=== PATIENT | female | born 1935 | race Caucasian/White ===

== ENCOUNTER → 2017-11-10 | Outpatient (CLI) | payer MEDICARE ==
[~2017-11-10] MED LIST: LEVO100T63 PO; NEXI20CA PO; SIMV20TA PO
[2017-11-10 09:02] LABS: BILIRUBIN, URINE NEG (NEG); BLOOD, URINE NEG (NEG); GLUCOSE,URINE NEG (NEG); KETONE, URINE NEG (NEG); NITRITE,URINE NEG (NEG); PH, URINE 6.5 (5.0-8.5); URINE LEUKOCYTE ESTERASE NEG (NEG)
[2017-11-10 09:10] LABS: URINE COLOR YELLOW (YELLW/STRAW)
[2017-11-10 09:10] LABS: CHLORIDE 107 MEQ/L (98-107); SODIUM (NA) 140 MEQ/L (136-145)
[2017-11-10 09:11] LABS: SQUAMOUS EPITHELIAL CELL URINE 0-5 /hpf (0-5); WBC, URINE 0-2 /hpf (0-5)
[2017-11-10 09:11] LABS: HEMATOCRIT 46.9 % (35.0-46.0); MEAN CELL VOLUME 89.1 FL (80.0-100.0); MEAN CORPUSCULAR HEMOGLOBIN 28.5 PG (27.0-34.0); PLATELET COUNT 282 TH/MM3 (150-450); RED BLOOD COUNT 5.27 MIL/MM3 (4.00-5.30); RED CELL DISTRIBUTION WIDTH 12.5 % (11.6-17.2); WHITE BLOOD COUNT 5.1 TH/MM3 (4.0-11.0)
[2017-11-10 09:13] LABS: CALCIUM 9.4 MG/DL (8.5-10.1)
[2017-11-10 09:14] LABS: ALBUMIN 3.4 GM/DL (3.4-5.0); BICARBONATE 28.2 MEQ/L (21.0-32.0); BLOOD UREA NITROGEN 21 MG/DL (7-18); GLUCOSE,RANDOM 113 MG/DL (74-106); PROTHROMBIN TIME - PATIENT 10.4 SEC (9.8-11.6)
[2017-11-10 09:17] LABS: ALT (GPT) 33 U/L (10-53); AST (GOT) 23 U/L (15-37); CREATININE 0.64 MG/DL (0.50-1.00); GLOMERULAR FILTRATION RATE 89 ML/MIN (>89)
[2017-11-10 09:18] LABS: TOTAL BILIRUBIN ADULT 0.9 MG/DL (0.2-1.0)
[2017-11-10 09:20] LABS: ALKALINE PHOSPHATASE 104 U/L (45-117)
--- NOTE | 2017-11-10 16:37 | EKG ---
Date Performed: 11/10/2017 Time Performed: 08:51:39 PTAGE: 82 years EKG: Sinus rhythm MINIMAL VOLTAGE CRITERIA FOR LVH, CONSIDER NORMAL VARIANT BORDERLINE ECG PREVIOUS TRACING : 07/11/2006 10.07 Since previous tracing, no significant change noted DOCTOR: Jacky Garcia Interpretating Date/Time 11/10/2017 16:36:44
== END ==
LOC: PHPRE 07:54
PROVIDERS: ATTEND Surgery
DX: Z01.810 Encounter for preprocedural cardiovascular examination (principal); Z01.812 Encounter for preprocedural laboratory examination
CPT/HCPCS: 36415; 80053; 81001; 85027; 85610; 85730; 93005

== ENCOUNTER → 2017-11-17 | Day surgery (SDC) | payer MEDICARE ==
--- NOTE | 2017-11-14 14:44 | MH ---
cc: Lb BEDOYA M.D. DATE OF ADMISSION 11/17/2017 ADMITTING DIAGNOSIS Carpal tunnel syndrome left wrist now for carpal tunnel release. ADMISSION HISTORY AND PHYSICAL This is a pleasant 82-year-old female who is being admitted today for a left carpal tunnel release due to carpal tunnel symptomatology. OTHER PAST HISTORY The patient has a history of: 1. Hernia 2. Hyperlipidemia 3. Hypothyroidism CURRENT MEDICATIONS Include: 1. Nexium 2. Simvastatin 3. Levothyroxine PAST SURGERIES 1. Hernia repair 2. Cholecystectomy 3. Arthroscopic surgery on her right knee in 2003. REVIEW OF SYSTEMS Noncontributory FAMILY HISTORY Noncontributory SOCIAL HISTORY She does not smoke or drink. ALLERGIES She has no known allergies. PHYSICAL EXAMINATION We find an 82-year-old female well-developed, well-nourished oriented x3 complaining of left carpal tunnel symptomatology. VITAL SIGNS: Blood pressure 122/88, pulse 90 and regular, respirations 18, temperature 98.2, pulse oximetry 97% on room air. HEENT: Eyes PERRL, EOMI. Ears, nose, mouth clear. NECK: Supple. LUNGS: Clear. HEART: Regular rate. ABDOMEN: Soft. Positive bowel sounds, nontender. EXTREMITIES: Reveal her left hand to have decreased sensation in the thumb, index, long and ring fingers with a positive Tinel's sign. IMPRESSION AT THIS TIME Carpal tunnel syndrome, severe left-hand. PLAN Admission for left carpal tunnel release today. The patient given a prescription for postoperative pain control in the office. MD DAVONTE Ortez/JORGE /1:21 PM /1:24 PM
[~2017-11-17] VITALS: Ht 167.6 cm; Wt 79.5 kg
[~2017-11-17] MED LIST changes: +BACITRACIN TOP OINT 15 GM TUBE ONE; +BUPIVACAINE HCL PF 0.25% 30 ML VIAL ONE; +CHLORHEXIDINE GLUCONATE 2 % 1 PACK (2 CLOTHS) TOPICAL ONE; +CHLORHEXIDINE GLUCONATE 4% SOLN 120 ML BTL TOPICAL SCH; +FAMOTIDINE 20 MG/2 ML VIAL ONE; +LACTATED RINGER'S 1000 ML IV PRN; +LIDOCAINE HCL 1% 20 ML VIAL ONE; +METOPROLOL TARTRATE 25 MG TAB PO PRN; +MIDAZOLAM HCL 2 MG/2 ML VIAL ONE; +SODIUM CHLORID 0.9% 500 ML IV PRN; +ceFAZolin 2 GM PREMIX 50 ML ONE
[2017-11-17 09:50] VITALS: BP 147/78; PULSE 65; RESP 16; TEMP 98; O2SAT 99
--- NOTE | 2017-11-18 18:24 | MP ---
cc: Lb MORALES M.D. DATE OF SURGERY: 11/17/2017. PREOPERATIVE DIAGNOSIS: Carpal tunnel syndrome left wrist. POSTOPERATIVE DIAGNOSIS: Carpal tunnel syndrome left wrist. OPERATIVE PROCEDURE PERFORMED: Left carpal tunnel release. SURGEON: Lb Morales MD. HOUSE CALLS NURSE PRACTITIONER: SHADIA Chávez. ANESTHESIA: LMA DESCRIPTION OF THE PROCEDURE IN DETAIL: The patient was brought to the operating room and placed on the operating table in the supine position. After successful induction of anesthesia, the patient's left hand and wrist were prepped and draped in the usual manner. The tourniquet inflated on the left upper arm and set to 250 mmHg pressure. Incision was then made extending from the distal wrist crease longitudinally along the proximal thenar crease one inch in length and carried down through the subcutaneous tissue and fascia and through the transverse carpal ligament to completely free the median nerve distally and proximally to the incision. After the nerve was freed, the tourniquet was deflated with total tourniquet time being six minutes at 250 mmHg pressure. The wound was irrigated copiously with lactated Ringers solution. Meticulous hemostasis achieved and the skin was approximated using interrupted 3-0 nylon suture. A wet and then dry dressing was applied to the wound followed by Xeroform gauze, a bulky wrap and volar splint. The estimated blood loss was 1 cc. Sponge and suture counts were correct. The patient tolerated the procedure well and left the operating room in satisfactory condition. NOTE: SHADIA Chávez, was present during the entire procedure to include patient positioning and the procedure. The medical necessity of a nurse practitioner / first press operator was indicated in this case due to the surgical complexity of the case itself. During the surgical case, the assembler surgical garment was working at the back table while my surgical dressing maker / [employer] was directly assisting me. MD DAVONTE Ortez/ALFONSO /8:42 AM /6:12 PM
== END | disposition home or self-care (01) ==
LOC: PHSDC 06:10
PROVIDERS: ATTEND Surgery
DX: G56.02 Carpal tunnel syndrome, left upper limb (principal)
CPT/HCPCS: 01810; 64721; J0690; J2250; J3010; J7120